=== PATIENT | female | born 1935 | race Caucasian/White ===

== ENCOUNTER 2020-12-17 15:32 | Inpatient (IN) | payer MEDICARE, OTHER ==
--- NOTE | 2020-12-17 15:34 | ED ---
General Adult HPI - General Stated complaint: SOB Time Seen by Provider: 12/17/20 15:33 - History of Present Illness Initial comments: Shayy is an 85-year-old female who is brought to the ER today by ambulance in respiratory failure. Per EMS they were called due to respiratory distress. Upon arrival the patient was in respiratory distress, patient had recently been admitted to [facility] [place] for pneumonia and discharged on Saturday. Due to severity of the condition they decided bypass [place] and bring her here. In route to the hospital the patient decompensated had some apnea. He began assisting her ventilations with BVM, the plan for intubation however after BVM assisted ventilations to be more awake and they decided to continue transport with assisted ventilations. Further history is provided by the patient's daughter bedside. Patient has advanced dementia. She spent most of the past year and a half the hospital or facility due to a broken femur and recurrent admissions for pneumonia. She states that the patient has been clear about being DNR absolutely not wanting CPR/Intubation - Related Data Home Medications Medication Instructions Recorded Confirmed Brimonidine Tartrate/Timolol 1 drop BOTH EYES BID@899,199901/26/15 12/17/20 [Combigan 0.2%/0.5% Ophth Soln] Acetaminophen Tab [Tylenol] 650 mg PO Q4H PRN 12/17/20 12/17/20 Acetaminophen [Tylenol 8 Hour] 650 mg PO BID@0900,1700 12/17/20 12/17/20 Aspirin EC [Ecotrin Low Dose] 81 mg PO DAILY@89912/17/20 12/17/20 Celecoxib [CeleBREX] 200 mg PO BID@0900,1600 12/17/20 12/17/20 Donepezil [Aricept] 10 mg PO HS@199912/17/20 12/17/20 Dorzolamide 2% [Trusopt 2%] 1 drops BOTH EYES 12/17/20 12/17/20 TID@899,1399,1999 Furosemide [Lasix] 20 mg PO DAILY@89912/17/20 12/17/20 Ibuprofen [Motrin Ib] 200 mg PO Q8H PRN 12/17/20 12/17/20 Latanoprost [Xalatan 0.005%] 2 drop BOTH EYES HS@199912/17/20 12/17/20 Menthol [Biofreeze] 1 applic TOPICAL DIRECTED PRN 12/17/20 12/17/20 Metoclopramide [Reglan] 5 mg PO BID@0900,1700 12/17/20 12/17/20 Simvastatin [Zocor] 40 mg PO HS@2000 12/17/20 12/17/20 buPROPion XL [Wellbutrin XL] 150 mg PO DAILY@0900 12/17/20 12/17/20 Allergies Allergy/AdvReac Type Severity Reaction Status Date / Time No Known Allergies Allergy Verified 12/17/20 16:43 Review of Systems ROS Statement: Those systems with pertinent positive or pertinent negative responses have been documented in the HPI. ROS Other: All systems not noted in ROS Statement are negative. Past Medical History Past Medical History: Cancer, Hyperlipidemia, Hypertension Additional Past Medical History / Comment(s): Skin Cancer History of Any Multi-Drug Resistant Organisms: None Reported Past Surgical History: Cholecystectomy, Orthopedic Surgery Additional Past Surgical History / Comment(s): Knee surgery Past Anesthesia/Blood Transfusion Reactions: No Reported Reaction Past Psychological History: No Psychological Hx Reported Past Alcohol Use History: None Reported Past Drug Use History: None Reported - Past Family History Mother Family Medical History: No Reported History General Exam Limitations: altered mental status General appearance: lethargic Head exam: Present: atraumatic Eye exam: Present: PERRL ENT exam: Present: mucous membranes dry Respiratory exam: Present: respiratory distress, rhonchi Cardiovascular Exam: Present: regular rate, tachycardia GI/Abdominal exam: Present: soft. Absent: distended, guarding Rectal exam: Present: black stool External exam: Present: normal external exam Extremities exam: Absent: pedal edema Skin exam: Present: intact Course Vital Signs 12/17/20 12/17/20 12/17/20 15:32 16:00 17:00 Temperature 98.0 F Pulse Rate 102 H 94 102 H Respiratory 32 H 32 H 30 H Rate Blood Pressure 120/70 111/58 88/58 O2 Sat by Pulse 97 99 98 Oximetry 12/17/20 12/17/20 12/17/20 17:30 17:55 18:00 Temperature Pulse Rate 102 H 104 H 102 H Respiratory 30 H 30 H Rate Blood Pressure 114/59 103/59 O2 Sat by Pulse 98 97 Oximetry 12/17/20 18:04 Temperature Pulse Rate 104 H Respiratory Rate Blood Pressure O2 Sat by Pulse Oximetry EKG Findings - EKG Comments: EKG Findings:: EKG was obtained due to his tachycardia and poor distress, rate is 104 rhythm is sinus tach normal axis, normal intervals no evidence of acute ischemia or infarction. Medical Decision Making - Medical Decision Making Pt seen and evaluated immediately upon arrival Patient's daughter Sridevi contacted - states that patient is DNR Patient was placed on BiPap Septic workup was initiated Labs with multiple significant abnormalities - leukocytosis, SABI, hyperkalemia Hyperkalemia protocol ordered CXR with bilateral lower lobe pneumonia - broad spectrum antibiotics ordered Also abnormalities were discussed with the patient's daughter at bedside. She is aware that her mother is critically ill. She is agreeable to plan for current treatment with IV fluid resuscitation, antibiotics and BiPAP. She states that should her mom decompensate or become worse she would likely make her comfort care. Would like her mother admitted patient is DO NOT RESUSCITATE. She care was [facility], she accepts the admission - Lab Data Result diagrams: 12/17/20 16:17 12/17/20 16:17 Lab Results 12/17/20 12/17/20 12/17/20 Range/Units 16:17 16:17 16:17 WBC 20.3 H (3.8-10.6) k/uL RBC 3.58 L (3.80-5.40) m/uL Hgb 11.0 L (11.4-16.0) gm/dL Hct 31.6 L (34.0-46.0) % MCV 88.1 (80.0-100.0) fL MCH 30.6 (25.0-35.0) pg MCHC 34.7 (31.0-37.0) g/dL RDW 14.6 (11.5-15.5) % Plt Count 864 H (150-450) k/uL MPV 7.9 Neutrophils % 89 % Lymphocytes % 6 % Monocytes % 3 % Eosinophils % 0 % Basophils % 0 % Neutrophils # 18.0 H (1.3-7.7) k/uL Lymphocytes # 1.2 (1.0-4.8) k/uL Monocytes # 0.6 (0-1.0) k/uL Eosinophils # 0.1 (0-0.7) k/uL Basophils # 0.1 (0-0.2) k/uL PT 10.2 (9.0-12.0) sec INR 0.9 (<1.2) APTT 23.5 (22.0-30.0) sec Sodium 135 L (137-145) mmol/L Potassium 6.2 H* (3.5-5.1) mmol/L Chloride 106 (98-107) mmol/L Carbon Dioxide 11 L (22-30) mmol/L Anion Gap 18 mmol/L BUN 132 H* (7-17) mg/dL Creatinine 3.46 H (0.52-1.04) mg/dL Est GFR (CKD-EPI)AfAm 13 (>60 ml/min/1.73 sqM) Est GFR (CKD-EPI)NonAf 11 (>60 ml/min/1.73 sqM) Glucose 198 H (74-99) mg/dL Plasma Lactic Acid Vamsi (0.7-2.0) mmol/L Calcium 9.8 (8.4-10.2) mg/dL Total Bilirubin 0.4 (0.2-1.3) mg/dL AST 35 (14-36) U/L ALT 26 (4-34) U/L Alkaline Phosphatase 162 H (38-126) U/L Total Protein 6.5 (6.3-8.2) g/dL Albumin 3.2 L (3.5-5.0) g/dL Urine Color Urine Appearance (Clear) Urine pH (5.0-8.0) Ur Specific [place] (1.001-1.035) Urine Protein (Negative) Urine Glucose (UA) (Negative) Urine Ketones (Negative) Urine Blood (Negative) Urine Nitrite (Negative) Urine Bilirubin (Negative) Urine Urobilinogen (<2.0) mg/dL Ur Leukocyte Esterase (Negative) Coronavirus (PCR) (Not Detectd) 12/17/20 12/17/20 12/17/20 Range/Units 16:17 16:35 16:35 WBC (3.8-10.6) k/uL RBC (3.80-5.40) m/uL Hgb (11.4-16.0) gm/dL Hct (34.0-46.0) % MCV (80.0-100.0) fL MCH (25.0-35.0) pg MCHC (31.0-37.0) g/dL RDW (11.5-15.5) % Plt Count (150-450) k/uL MPV Neutrophils % % Lymphocytes % % Monocytes % % Eosinophils % % Basophils % % Neutrophils # (1.3-7.7) k/uL Lymphocytes # (1.0-4.8) k/uL Monocytes # (0-1.0) k/uL Eosinophils # (0-0.7) k/uL Basophils # (0-0.2) k/uL PT (9.0-12.0) sec INR (<1.2) APTT (22.0-30.0) sec Sodium (137-145) mmol/L Potassium (3.5-5.1) mmol/L Chloride (98-107) mmol/L Carbon Dioxide (22-30) mmol/L Anion Gap mmol/L BUN (7-17) mg/dL Creatinine (0.52-1.04) mg/dL Est GFR (CKD-EPI)AfAm (>60 ml/min/1.73 sqM) Est GFR (CKD-EPI)NonAf (>60 ml/min/1.73 sqM) Glucose (74-99) mg/dL Plasma Lactic Acid Vamsi 1.7 (0.7-2.0) mmol/L Calcium (8.4-10.2) mg/dL Total Bilirubin (0.2-1.3) mg/dL AST (14-36) U/L ALT (4-34) U/L Alkaline Phosphatase (38-126) U/L Total Protein (6.3-8.2) g/dL Albumin (3.5-5.0) g/dL Urine Color Yellow Urine Appearance Clear (Clear) Urine pH 5.0 (5.0-8.0) Ur Specific [place] 1.019 (1.001-1.035) Urine Protein Negative (Negative) Urine Glucose (UA) Negative (Negative) Urine Ketones Negative (Negative) Urine Blood Negative (Negative) Urine Nitrite Negative (Negative) Urine Bilirubin Negative (Negative) Urine Urobilinogen <2.0 (<2.0) mg/dL Ur Leukocyte Esterase Negative (Negative) Coronavirus (PCR) Not Detected (Not Detectd) Disposition Clinical Impression: Pneumonia, Septic shock, SABI (acute kidney injury), Hyperkalemia, Dementia, Altered mental status Disposition: ADMITTED IP TO THIS HOSP Condition: Critical Is patient prescribed a controlled substance at d/c from ED?: No Referrals: None,Stated [REFERRING] - 1-2 days
[2020-12-17 16:21] LABS: Basophils # (A) 0.1 k/uL (0-0.2); Basophils % (A) 0 %; Eosinophils # (A) 0.1 k/uL (0-0.7); Eosinophils % (A) 0 %; HCT 31.6 % (34.0-46.0); Lymphocytes # (A) 1.2 k/uL (1.0-4.8); Lymphocytes % (A) 6 %; MCH 30.6 pg (25.0-35.0); MCHC 34.7 g/dL (31.0-37.0); MCV 88.1 fL (80.0-100.0); Mean Platelet Volume 7.9; Monocytes # (A) 0.6 k/uL (0-1.0); Monocytes % (A) 3 %; Neutrophils % (A) 89 %; Platelet Count 864 k/uL (150-450); RBC 3.58 m/uL (3.80-5.40); RDW 14.6 % (11.5-15.5); WBC 20.3 k/uL (3.8-10.6)
[2020-12-17 16:39] LABS: Appearance,Urine Clear (Clear); Bilirubin,Urine Negative (Negative); Blood,Urine Negative (Negative); Color,Urine Yellow; Glucose,Urine (UA) Negative (Negative); Ketones,Urine Negative (Negative); Leukocyte Esterase,Urine Negative (Negative); Nitrite,Urine Negative (Negative); Protein,Urine Negative (Negative); Specific Gravity,Urine 1.019 (1.001-1.035); Urobilinogen,Urine <2.0 mg/dL (<2.0)
[2020-12-17 16:41] LABS: INR 0.9 (<1.2); Partial Thromboplastin Time 23.5 sec (22.0-30.0); Prothrombin Time 10.2 sec (9.0-12.0)
[2020-12-17 16:45] LABS: Albumin 3.2 g/dL (3.5-5.0); Calcium 9.8 mg/dL (8.4-10.2); Total Bilirubin 0.4 mg/dL (0.2-1.3); Total Protein 6.5 g/dL (6.3-8.2)
[2020-12-17 17:08] LABS: Potassium 6.2 mmol/L (3.5-5.1)
--- NOTE | 2020-12-17 17:37 | XR ---
EXAMINATION TYPE: XR chest 1V portable DATE OF EXAM: 12/17/2020 COMPARISON: NONE HISTORY: Hypoxemia TECHNIQUE: Single view FINDINGS: Heart and mediastinum are normal. There is some airspace infiltrate in the medial right low er lobe. There is some mild interstitial density in the left lower lobe. There are no hilar masses. T here is no heart failure. There are chest leads. IMPRESSION: Bilateral lower lobe pneumonia that is more on the right side. Normal heart.
[2020-12-17] MEDS ORDERED: CALCIUM GLUCONATE 1 GM in SODIUM CHLORIDE 0.9% 100 ML IVPB ONE (17:38)
[2020-12-17] MEDS ORDERED: INSULIN REGULAR 100 UNIT/ML VIAL (IV) IV ONE (17:38)
[2020-12-17] MEDS ORDERED: SODIUM BICARB 8.4% 50 ML SYR (1 MEQ/ML) IV ONE (17:38)
[2020-12-17] MEDS ORDERED: ALBUTEROL NEB (CONC) 2.5 MG/0.5 ML INHALATION ONE (17:38)
[2020-12-17] MEDS ORDERED: DEXTROSE 50% SYRINGE 50 ML IVP ONE (17:38)
[2020-12-17] MEDS ORDERED: PIPERACILLIN-TAZOBACTAM 3.375 GM in SODIUM CHLORIDE 0.9% 100 ML IVPB STA (17:55)
[2020-12-17] MEDS: SODIUM CHLORIDE 0.9% 1,000 ML IV SCH (17:59)
[2020-12-17] MEDS ORDERED: NALOXONE 0.4 MG/ML 1 ML VIAL IV PRN (18:01)
[2020-12-17 22:35] LABS: Calcium 9.9 mg/dL (8.4-10.2)
[2020-12-17 22:44] LABS: Potassium 5.8 mmol/L (3.5-5.1)
[2020-12-18] MEDS ORDERED: INSULIN REGULAR 100 UNIT/ML VIAL (IV) IV ONE (00:25)
[2020-12-18] MEDS ORDERED: DEXTROSE 50% SYRINGE 50 ML IVP STA (00:26)
[2020-12-18] MEDS: SODIUM CHLORIDE 0.9% 1,000 ML IV SCH ×3 (03:33→20:10)
[2020-12-18 04:14] LABS: Calcium 9.1 mg/dL (8.4-10.2); Potassium 4.4 mmol/L (3.5-5.1)
[2020-12-18] MEDS: PANTOPRAZOLE 40 MG/10 ML VIAL IV SCH (08:01)
--- NOTE | 2020-12-18 14:35 | CT ---
EXAMINATION TYPE: CT brain wo con DATE OF EXAM: 12/18/2020 COMPARISON: None HISTORY: Mental status change CT DLP: 981.8 mGycm Automated exposure control for dose reduction was used. There is cerebral cortical atrophy. There is no mass effect nor midline shift. There is no sign of in tracranial hemorrhage. The calvarium is intact. There is hyperostosis frontalis. IMPRESSION: Cerebral atrophy. No acute intracranial abnormality.
[2020-12-18] MEDS ORDERED: ACETAMINOPHEN TAB 325 MG TAB PO PRN (15:04)
[2020-12-18] MEDS ORDERED: MENTHOL-ZINC OXIDE OINT 113 GM TUBE TOPICAL PRN (15:04)
[2020-12-18] MEDS ORDERED: ALPRAZolam 0.25 MG TAB PO PRN (15:06)
[2020-12-18] MEDS: PIPERACILLIN-TAZOBACTAM 3.375 GM in SODIUM CHLORIDE 0.9% 100 ML IVPB SCH (16:58)
[2020-12-18] MEDS: METOCLOPRAMIDE 5 MG TAB PO SCH (16:58)
[2020-12-18] MEDS: ACETAMINOPHEN TAB 325 MG TAB PO SCH (16:58)
--- NOTE | 2020-12-18 18:13 | HP ---
HISTORY AND PHYSICAL DATE OF SERVICE: 12/18/2020. CHIEF COMPLAINTS: Shortness of breath and respiratory distress. HISTORY OF PRESENT ILLNESS: This 85-year-old woman with a past medical history of cancer, hyperlipidemia, history of hypertension, skin cancer, cholecystomy, being followed by Dr. Mckeon in the outpatient setting, apparently was admitted recently with pneumonia to [facility]. After that the patient was apparently not eating and the patient has difficulty in walking. Patient has baseline dementia. The patient also was found to be clammy with significant shortness of breath. The patient was also found to be hypotensive. Because of multiple complex medical issues, the patient was taken to [facility] and subsequently transferred to [facility], admitted for further evaluation and treatment. Currently the patient is confused. Most of the history is taken from my discussion with the daughter at the bedside and the staff as well as review of the chart. The patient also had acute kidney injury and hyperkalemia and multiple other medical problems. The patient has diminished p.o. intake. PAST MEDICAL HISTORY: History of hypertension, hyperlipidemia, history of recent pneumonia, cholecystectomy. MEDICATIONS: Home medications are bupropion, Zocor, Reglan, Xalatan, Motrin, Lasix, Trusopt, Aricept, Celebrex, Combigan, Ecotrin, Tylenol. Doses are noted. ALLERGIES: NONE. Family history, social history, review of systems could not be taken because of the patient's mental status. No history of smoking per chart. PHYSICAL EXAMINATION: Patient is conscious, confused. Pulse 86, blood pressure 135/60, respiration 22, temperature 97.8, pulse ox 100% on 50% BiPAP. HEENT: Conjunctivae normal. NECK: No jugular venous distention. CARDIOVASCULAR: S1, S2 muffled. RESPIRATION: Breath sounds diminished at the bases. A few scattered rhonchi and crackles. ABDOMEN: Soft, nontender. LEGS: No edema. No swelling. NERVOUS SYSTEM: Higher functions as mentioned earlier. Diffusely weak. LYMPHATICS: No lymph node palpable in neck, axillae or groin. SKIN: No ulcer, rash, bleeding. JOINTS: No active deforming arthropathy. LAB STUDIES: WBC 10.3, hemoglobin 11. Sodium potassium 6.2, creatinine 3.46. ASSESSMENT: 1. Acute bilateral pneumonia with possible sepsis and septic shock and severe sepsis, present on admission. 2. Acute renal failure with acute tubular necrosis. 3. Hyperkalemia secondary to acute renal failure. 4. Severe metabolic acidosis. 5. Hyponatremia. 6. Change in mental status, acute on chronic metabolic encephalopathy. 7. Increased white count. 8. Anemia. 9. Increased platelets. 10.Elevated alkaline phosphatase. 11.Hypoalbuminemia with mild protein-calorie malnutrition. 12.History of hypertension. 13.Hyperlipidemia. 14.History of skin cancer. 15.History of cholecystectomy. 16.History of degenerative joint disease. 17.NO CODE, NO CPR, NO VENT. RECOMMENDATIONS AND DISCUSSION: In this 85-year-old woman who presented with multiple complex medical issues, we will monitor the patient closely, continue the current medications, continue with symptomatic treatment. Will initiate broad-spectrum IV antibiotics. Patient is started on Zosyn. I would also recommend symptomatic treatment, bronchodilators. IV fluids cautiously. Repeat labs in the morning. Otherwise, prognosis is guarded because of the multiple complex medical issues. Further recommendations to follow. MMODL / IJN: [id number] / MTDD
[2020-12-18] MEDS: DONEPEZIL 10 MG TAB PO SCH (20:15)
[2020-12-18] MEDS: HEPARIN SODIUM,PORCINE/PF 5,000 UNIT/0.5 ML SYRINGE SQ SCH (20:15)
[2020-12-18] MEDS: ATORVASTATIN 20 MG TAB PO SCH (20:15)
[2020-12-18] MEDS: LATANOPROST 0.005% OPHTH DROPS 2.5 ML BTL BOTH EYES SCH (20:17)
[2020-12-18] MEDS: TIMOLOL 0.5% OPHTH DROPS 5 ML BTL BOTH EYES SCH (20:17)
[2020-12-18] MEDS: DORZOLAMIDE HCL 2% DROPS 10 ML BTL BOTH EYES SCH (20:17)
[2020-12-18] MEDS: BRIMONIDINE TARTRATE 0.2% DROPS 5 ML BTL BOTH EYES SCH (20:17)
[2020-12-19] MEDS: SODIUM CHLORIDE 0.9% 1,000 ML IV SCH ×2 (04:16→12:47)
[2020-12-19] MEDS: PIPERACILLIN-TAZOBACTAM 3.375 GM in SODIUM CHLORIDE 0.9% 100 ML IVPB SCH ×2 (05:52→18:12)
[2020-12-19 08:29] LABS: Calcium 9.1 mg/dL (8.4-10.2); Potassium 3.8 mmol/L (3.5-5.1)
[2020-12-19 08:43] LABS: Basophils # (A) 0.1 k/uL (0-0.2); Basophils % (A) 0 %; Eosinophils % (A) 0 %; HCT 25.1 % (34.0-46.0); Hypochromasia Slight; Lymphocytes # (A) 1.3 k/uL (1.0-4.8); Lymphocytes % (A) 6 %; MCH 29.5 pg (25.0-35.0); MCHC 32.7 g/dL (31.0-37.0); MCV 90.2 fL (80.0-100.0); Mean Platelet Volume 8.1; Monocytes % (A) 4 %; Neutrophils # (A) 20.7 k/uL (1.3-7.7); Neutrophils % (A) 88 %; Platelet Count 708 k/uL (150-450); RBC 2.78 m/uL (3.80-5.40); RDW 15.2 % (11.5-15.5); WBC 23.5 k/uL (3.8-10.6)
[2020-12-19 08:47] LABS: HGB 8.2 gm/dL (11.4-16.0)
[2020-12-19] MEDS ORDERED: buPROPion XL 150 MG TAB.ER.24H PO SCH (09:00)
[2020-12-19] MEDS: HEPARIN SODIUM,PORCINE/PF 5,000 UNIT/0.5 ML SYRINGE SQ SCH ×2 (10:05→20:09)
[2020-12-19] MEDS: PANTOPRAZOLE 40 MG/10 ML VIAL IV SCH (10:05)
[2020-12-19] MEDS: ACETAMINOPHEN TAB 325 MG TAB PO SCH ×2 (10:06→16:51)
[2020-12-19] MEDS: METOCLOPRAMIDE 5 MG TAB PO SCH ×2 (10:06→16:51)
[2020-12-19] MEDS: TIMOLOL 0.5% OPHTH DROPS 5 ML BTL BOTH EYES SCH ×2 (10:07→20:09)
[2020-12-19] MEDS: BRIMONIDINE TARTRATE 0.2% DROPS 5 ML BTL BOTH EYES SCH ×2 (10:07→20:09)
[2020-12-19] MEDS: DORZOLAMIDE HCL 2% DROPS 10 ML BTL BOTH EYES SCH ×3 (10:07→20:09)
[2020-12-19] MEDS ORDERED: MULTIVITAMINS, THERA 1 EACH TAB PO SCH (12:00)
[2020-12-19 14:29] VITALS: BMI 22.9
[2020-12-19] MEDS: DEXTROSE 5% IN WATER 1,000 ML with SODIUM BICARB (1 MEQ/ML) 50 ML IV SCH (14:56)
--- NOTE | 2020-12-19 16:56 | P.PN ---
Progress Note - Text Progress Note Date: 12/19/20 Presenting complaint: Short of breath History of presenting complaint: 85-year-old patient who follows with Dr. Mckeon admitted to [place] recently for pneumonia. Patient has baseline dementia. Patient is found to be hypotensive and clammy and short of breath. He was transferred here from [facility]. Admitted with acute kidney injury, hyperkalemia December 19: Tired. Not much of a appetite. Laying down. Confused Review of systems: Was done for constitutional, cardiovascular, GI, pulmonary. relevant finding as above Active Medications Acetaminophen (Acetaminophen Tab 325 Mg Tab) 650 mg PO Q4H PRN PRN Reason: Mild Pain Acetaminophen (Acetaminophen Tab 325 Mg Tab) 650 mg PO BID@0900,1700 [facility] Last Admin: 12/19/20 10:06 Dose: 650 mg Documented by: Alprazolam (Alprazolam 0.25 Mg Tab) 0.25 mg PO TID PRN PRN Reason: Anxiety Atorvastatin Calcium (Atorvastatin 20 Mg Tab) 20 mg PO HS@1999 [facility] Last Admin: 12/18/20 20:15 Dose: 20 mg Documented by: Brimonidine Tartrate (Brimonidine Tartrate 0.2% Drops 5 Ml Btl) 1 drops BOTH EYES BID@ [facility] Last Admin: 12/19/20 10:07 Dose: 1 drops Documented by: Bupropion HCl (Bupropion Xl 150 Mg Tab.Er.24h) 150 mg PO DAILY@0900 [facility] Last Admin: 12/19/20 10:06 Dose: 150 mg Documented by: Calamine/Phenol (Menthol-Zinc Oxide Oint 113 Gm Tube) 1 applic TOPICAL DAILY PRN PRN Reason: PAIN Donepezil HCl (Donepezil 10 Mg Tab) 10 mg PO HS@1999 [facility] Last Admin: 12/18/20 20:15 Dose: 10 mg Documented by: Dorzolamide HCl (Dorzolamide Hcl 2% Drops 10 Ml Btl) 1 drops BOTH EYES TID@899,1399,1999 [facility] Last Admin: 12/19/20 14:56 Dose: 1 drops Documented by: Heparin Sodium (Porcine) (Heparin Sodium,Porcine/Pf 5,000 Unit/0.5 Ml Syringe) 5,000 unit SQ Q12HR [facility] Last Admin: 12/19/20 10:05 Dose: 5,000 unit Documented by: Piperacillin Sod/Tazobactam (Sod 3.375 gm/ Sodium Chloride) 100 mls @ 25 mls/hr IVPB Q12H [facility] Last Admin: 12/19/20 05:52 Dose: 25 mls/hr Documented by: Sodium Bicarbonate 50 ml/ (Dextrose/Water) 1,050 mls @ 80 mls/hr IV .Q13H8M [facility] Last Admin: 12/19/20 14:56 Dose: 80 mls/hr Documented by: Latanoprost (Latanoprost 0.005% Ophth Drops 2.5 Ml Btl) 1 drops BOTH EYES HS@1999 [facility] Last Admin: 12/18/20 20:17 Dose: 1 drops Documented by: Metoclopramide HCl (Metoclopramide 5 Mg Tab) 5 mg PO BID@0900,1700 [facility] Last Admin: 12/19/20 10:06 Dose: 5 mg Documented by: Multivitamins (Multivitamins, Thera 1 Each Tab) 1 each PO DAILY@1200 [facility] Last Admin: 12/19/20 10:06 Dose: 1 each Documented by: Naloxone HCl (Naloxone 0.4 Mg/Ml 1 Ml Vial) 0.2 mg IV Q2M PRN PRN Reason: Opioid Reversal Timolol Maleate (Timolol 0.5% Ophth Drops 5 Ml Btl) 1 drops BOTH EYES BID@899,1999 [facility] Last Admin: 12/19/20 10:07 Dose: 1 drops Documented by: On examination: VITAL SIGNS: [97.3, 101, 16, 1 61 x 67, under percent on 4 L] GENERAL APPEARANCE: Laying in bed, tired HEENT: Normal external appearance of nose and ear. Oral cavity normal EYES: Pupils equal. Conjunctiva normal. NECK: JVD not raised. Mass not palpable. RESPIRATORY: Respiratory effort increased Lungs decreased breath sounds CARDIOVASCULAR: First and second sounds normal. No edema. ABDOMEN: Soft. Liver and spleen not palpable. No tenderness. No mass palpable. PSYCHIATRY: Rather confused INVESTIGATIONS, reviewed in the clinical context: WBC 22.5 hemoglobin 8.2 platelets 708 sodium 149 potassium 3.8 white count 12 chloride 124 BUN 100 creatinine 1.89 Admission labs: WBC 20.3 hemoglobin 11 platelets a 64 potassium 6.2 BUN 132 creatinine 3.46 UA negative Coronavirus [PCF]: Not detected EKG tracing: Sinus tachycardia Chest x-ray: Infiltrates Assessment and plan: -Bilateral pneumonia, suspect gram-negative organism, with possible severe sepsis IV Zosyn -Acute kidney injury possibly ATN on presentation: Slow to respond IV fluids. Follow labs -Hyperkalemia secondary to HPI Improving -Acute metabolic acidosis is due to renal failure: Slow to respond Start bicarbonate drip -Mild protein calorie malnutrition from decreased oral intake Food supplement -Hyperlipidemia Lipitor 20 mg daily at bedtime -Primary osteoarthritis Pain medications as needed -Advance cognitive impairment due to Alzheimer's dementia -Depression otherwise specified Wellbutrin XL 150 mg daily -Acute delirium from pneumonia Follow closely -No code Continue IV Zosyn. Place on IV bicarbonate drip. Follow electrolytes closely. Check pro-calcitonin. Prognosis guarded.
[2020-12-19] MEDS: ATORVASTATIN 20 MG TAB PO SCH (20:09)
[2020-12-19] MEDS: LATANOPROST 0.005% OPHTH DROPS 2.5 ML BTL BOTH EYES SCH (20:09)
[2020-12-19] MEDS: DONEPEZIL 10 MG TAB PO SCH (20:09)
[2020-12-20] MEDS: DEXTROSE 5% IN WATER 1,000 ML with SODIUM BICARB (1 MEQ/ML) 50 ML IV SCH (00:05)
[2020-12-20 03:43] VITALS: BP 148/72; PULSE 107; RESP 19; TEMP 98.1
[2020-12-20] MEDS: PIPERACILLIN-TAZOBACTAM 3.375 GM in SODIUM CHLORIDE 0.9% 100 ML IVPB SCH (07:58)
--- NOTE | 2020-12-20 19:22 | P.DS ---
Providers Date of admission: 12/17/20 18:01 Expected date of discharge: 12/20/20 Attending physician: Jadon Rios Primary care physician: James Mckeon [facility] Course: Presenting complaint: Short of breath History of presenting complaint: 85-year-old patient who follows with Dr. Mckeon admitted to [place] recently for pneumonia. Patient has baseline dementia. Patient is found to be hypotensive and clammy and short of breath. He was transferred here from [facility]. Admitted with acute kidney injury, hyperkalemia, pneumonia, sepsis. December 19: Tired. Not much of a appetite. Laying down. Confused December 20: Early hours of today patient rhythm change. Went into asystole and . Later today I called the patient's daughter over the phone. She was comfortable that her mother went away peacefully. INVESTIGATIONS, reviewed in the clinical context: WBC 22.5 hemoglobin 8.2 platelets 708 sodium 149 potassium 3.8 white count 12 chloride 124 BUN 100 creatinine 1.89 Admission labs: WBC 20.3 hemoglobin 11 platelets a 64 potassium 6.2 BUN 132 creatinine 3.46 UA negative Coronavirus [PCF]: Not detected EKG tracing: Sinus tachycardia Chest x-ray: Infiltrates Cause of : Pneumonia Assessment and plan: -Bilateral pneumonia, suspect gram-negative organism, with possible severe sepsis -Acute kidney injury possibly ATN on presentation: -Hyperkalemia secondary to HPI -Acute metabolic acidosis is due to renal failure: -Mild protein calorie malnutrition from decreased oral intake -Hyperlipidemia -Primary osteoarthritis -Advance cognitive impairment due to Alzheimer's dementia -Depression otherwise specified -Acute delirium from pneumonia -No code Disposition: Patient Patient Condition at Discharge: Critical Plan - Discharge Summary Discharge Rx Participant: No New Discharge Prescriptions: No Action Brimonidine Tartrate/Timolol [Combigan 0.2%/0.5% Ophth Soln] 1 drop BOTH EYES BID@0900,2000 Menthol [Biofreeze] 1 applic TOPICAL DIRECTED PRN PRN Reason: Pain Ibuprofen [Motrin Ib] 200 mg PO Q8H PRN PRN Reason: Pain Or Fever > 100.5 Acetaminophen [Tylenol 8 Hour] 650 mg PO BID@0900,1700 Furosemide [Lasix] 20 mg PO DAILY@0900 Dorzolamide 2% [Trusopt 2%] 1 drops BOTH EYES TID@0900,1400,1999 buPROPion XL [Wellbutrin XL] 150 mg PO DAILY@0900 Celecoxib [CeleBREX] 200 mg PO BID@0900,1600 Aspirin EC [Ecotrin Low Dose] 81 mg PO DAILY@0900 Acetaminophen Tab [Tylenol] 650 mg PO Q4H PRN PRN Reason: Pain Simvastatin [Zocor] 40 mg PO HS@1999 Metoclopramide [Reglan] 5 mg PO BID@0900,1700 Latanoprost [Xalatan 0.005%] 2 drop BOTH EYES HS@1999 Donepezil [Aricept] 10 mg PO HS@1999 Discharge Medication List Brimonidine Tartrate/Timolol [Combigan 0.2%/0.5% Ophth Soln] 1 drop BOTH EYES BID@899,199901/26/15 [History] Acetaminophen Tab [Tylenol] 650 mg PO Q4H PRN 12/17/20 [History] Acetaminophen [Tylenol 8 Hour] 650 mg PO BID@0900,1700 12/17/20 [History] Aspirin EC [Ecotrin Low Dose] 81 mg PO DAILY@89912/17/20 [History] Celecoxib [CeleBREX] 200 mg PO BID@0900,1600 12/17/20 [History] Donepezil [Aricept] 10 mg PO HS@199912/17/20 [History] Dorzolamide 2% [Trusopt 2%] 1 drops BOTH EYES TID@0900,1400,199912/17/20 [History] Furosemide [Lasix] 20 mg PO DAILY@89912/17/20 [History] Ibuprofen [Motrin Ib] 200 mg PO Q8H PRN 12/17/20 [History] Latanoprost [Xalatan 0.005%] 2 drop BOTH EYES HS@199912/17/20 [History] Menthol [Biofreeze] 1 applic TOPICAL DIRECTED PRN 12/17/20 [History] Metoclopramide [Reglan] 5 mg PO BID@0900,1700 12/17/20 [History] Simvastatin [Zocor] 40 mg PO HS@199912/17/20 [History] buPROPion XL [Wellbutrin XL] 150 mg PO DAILY@89912/17/20 [History] Follow up Appointment(s)/Referral(s): [facility] [NON-STAFF] - James Mckeon MD [Primary Care Provider] - Discharge Disposition: - Preliminary Cause of Preliminary Cause of : Pneumonia
--- NOTE | 2020-12-26 13:18 | CDI ---
Documentation Clarification Form Date: 12/26/20 From: Argenis Black Admit Date: 12/17/2020 06:01:00 PM Patient Name: Shayy Herrera Visit Number: [id number] Discharge Date: 12/20/2020 11:32:00 AM ATTENTION: The Clinical Documentation Specialists (CDI) and [facility] Coding Staff appreciate your assistance in clarifying documentation. Please respond to the clarification below the line at the bottom and electronically sign. The CDI & [facility] Coding staff will review the response and follow-up if needed. Please note: Queries are made part of the Legal Health Record. If you have any questions, please contact the author of this message via ITS. Dr. Jadon Rios, Your patient has respiratory failure documented in the ED Note. Based on this information and the findings below, is there an additional diagnosis that is clinically appropriate for this patient? History/Risk Factors: Gram negative sepsis, severe sepsis w septic shock, ATN, gram-negative pneumonia, metabolic encephalopathy, hyponatremia, mild protein calorie malnutrition, Alzheimer's dementia wo behavioral disturbance. Tobacco use: never smoked Home oxygen: none Clinical Indicators: Vital signs: T-98.0, P-102, R-32, SOB, labored accessory muscle use, BP-120/70, 11/58, O2 sat-97 NBM, O2 flow rate 6 on admission Pulse oximetry: 97 CO2-11, 12, 11, 12 Plasma lactic acid-1.7 Treatment: He was transferred here from [facility]. Admitted with acute kidney injury, hyperkalemia, pneumonia, sepsis. BIPAP. Nebulizer, Sodium bicarb, IV fluids, IV antibiotics Is there an additional diagnosis that is clinically appropriate for this patient? [ ] Acute Hypoxic Respiratory Failure (pO2 <60 mm Hg or SpO2 <91% on room air) [ ] Acute Hypercapnic Respiratory Failure (pCO2 >50 and pH <7.35) [ ] Other Diagnosis, please specify [ ] Unable to determine Acute hypoxic respiratory failure, POA MTDD
== END 2020-12-20 11:32 | disposition expired | DRG 871 ==
LOC: EC 15:32 → 3SCARD 18:01
PROVIDERS: ADMIT Hospitalist; ATTEND Hospitalist
PROC: 5A09357 Assistance with Respiratory Ventilation, Less than 24 Consecutive Hours, Continuous Positive Airway Pressure (ICD-10-PCS; principal; 2020-12-17)
DX: A41.59 Other Gram-negative sepsis (principal); R65.21 Severe sepsis with septic shock; J96.01 Acute respiratory failure with hypoxia; N17.0 Acute kidney failure with tubular necrosis; J15.6 Pneumonia due to other Gram-negative bacteria; G93.41 Metabolic encephalopathy; E87.2 Acidosis; E87.1 Hypo-osmolality and hyponatremia; E44.1 Mild protein-calorie malnutrition; G30.9 Alzheimer's disease, unspecified; F02.80 Dementia in other diseases classified elsewhere, unspecified severity, without behavioral disturbance, psychotic disturbance, mood disturbance, and anxiety; I46.9 Cardiac arrest, cause unspecified; Z66 Do not resuscitate; Z20.822 Contact with and (suspected) exposure to COVID-19; E87.5 Hyperkalemia; F32.9 Major depressive disorder, single episode, unspecified; E78.5 Hyperlipidemia, unspecified; I10 Essential (primary) hypertension; R74.8 Abnormal levels of other serum enzymes; M19.91 Primary osteoarthritis, unspecified site; Z68.21 Body mass index [BMI] 21.0-21.9, adult; Z79.1 Long term (current) use of non-steroidal anti-inflammatories (NSAID); Z79.82 Long term (current) use of aspirin; Z79.899 Other long term (current) drug therapy; Z85.828 Personal history of other malignant neoplasm of skin; Z90.49 Acquired absence of other specified parts of digestive tract; Z87.19 Personal history of other diseases of the digestive system; Z87.39 Personal history of other diseases of the musculoskeletal system and connective tissue; Z87.01 Personal history of pneumonia (recurrent); Z98.890 Other specified postprocedural states; Z71.3 Dietary counseling and surveillance; D64.9 Anemia, unspecified
CPT/HCPCS: 36415; 70450; 71045; 80048; 80053; 81003; 83605; 85025; 85610; 85730; 87040; 87635; 93005; 94640; 94660; 94760; 99285